=== PATIENT | male | born 1970 | race Caucasian/White ===

== ENCOUNTER → 2017-04-08 | Outpatient (CLI) | payer MEDICARE, OTHER ==
[~2017-04-08] MED LIST: ACETAMINOPHEN325 MG PEG; ADULT MUCU100 MG/5 M PEG; ALBUTEROL0.83 MG/ML IH; ALLERCLEAR10 MG PO; ANEXSIA 5/325 M1 TA1 PO; ASPIRIN81 M2 PEG; AURALGAN EAR DR14 ML AD; AURALGAN OTIC S10 M1 OT; BACID PEG; BACTROBAN22 GM TOP; BISA-LAX10 MG/SUP1 RC; CALADRYL CLEAR177 ML TOP; CALMOSEPTINE O3.5 GM TOP; CHEST CONG100 MG/51 PO; CHEWABLE ASPIRI81 MG PEG; CLARITIN10 M3 PO; CLARITIN10 MG PEG; CLOMIPRAMINE HC50 MG PEG; COLACE PO; COZAAR PO; COZAAR25 MG PO; CYCLOBENZAPRINE5 MG PEG; DULCOLAX10 MG/SUPP RC; FLEXERIL PO; FLEXERIL10 M1 PO; FLONASE16 GM; GABAPENTIN300 MG PEG; GABAPENTIN300 MG PO; GENTLE LAXATIVE10 MG RC; HYDROCODON-ACE1 EAC7 PEG; KCL PO; LANTUS100 U/ML SUBQ; LEVOTHYROXINE50 MC1 PO; LEVOTHYROXINE75 MCG PEG; LOPRESSOR PO; LOVASTATIN10 MG PEG; MELATONIN3 M4 PO; METOPROLOL TAR25 MG PO; MEVACOR PO; MEVACOR40 MG PO; NASAL SPRAY30 M1; NEPHROCAPS1 CAP PO; NEURONTIN600 MG PO; NEXIUM20 MG/PACK PEG; NORCO 5/325 TAB1 TAB PO; NOVOLOG100 U/M1 SUBQ; NOVOLOG100 U/ML; OMEGA 3 FISH OI1 CAP PEG; OMEGA 3 FISH OI1 CAP PO; PAIN RELIEF325 M1 PO; PATADAY2.5 ML OP; PATADAY2.5 ML OU; PRILOSEC PO; PRILOSEC20 MG PO; RENAL SOFTGEL1 MG PEG; RENAL SOFTGEL1 MG PO; ROBITUSSIN PO; ROBITUSSIN15 MG/5 ML PO; SEA MIST44 ML NS; SENOKOT60 M1 PO; SENOKOT60 ML PO; SERTRALINE HCL50 M1 PO; SYNTHROID PO; TAMIFLU75 M1 PO; TYLENOL325 M1 PO; VIBRAMYCIN100 M1 PEG; VITAMIN D400 UNI1 PEG; VITAMIN D50000 UNIT PEG; ZOLOFT50 MG PO
--- NOTE | ~2017-04-08 | XA166 ---
[facility] A Service of [facility] & [facility] RADIOLOGY TEXT RESULTS PATIENT: BRENT MONTOYA LOCATION: CIVR : 66 UNIT #: [id number] AGE: [address]: BERNICE VILLAVICENCIO SEX: M ORDER DR: [id number] [facility] [address] [place], [place] [address] [id number] O MR#: [id number] Acc #: [id number] NAME: BRENT MONTOYA : 1970 SEX: M STUDY DATE/TIME: 04/08/2017 14:40 UNIT: CIVR ROOM: STUDY DESCRIPTION: XA PICC Line Placement WO Port Attending Physician: Bernice Villavicencio Referring Physician: Bernice Villavicencio Primary Care Physician: Sukhi Vides Sr., M.D. MEDICAL IMAGING REPORT This report is preliminary unless electronic signature is present EXAM PICC line placement HISTORY Need for IV access in a 46-year-old male. PRE-PROCEDURE The procedure was explained to the patient and/or patient treasury representative including risks, benefits, potential complications and potential for alternative forms of treatment. Informed consent was obtained, and p1rior to initiating the procedure a formal timeout procedure was performed. PROCEDURE Using full standard sterile barrier technique, including caps, gowns, gloves, masks, as well as sterile skin preparation and standard sterile draping, the right arm was prepped and draped in the usual fashion, and real-time sterile ultrasound guidance was used to localize an arm vein and to confirm vessel patency. A hard copy ultrasound image was recorded. After local anesthesia with 1% Xylocaine, the vein was punctured using real-time sterile ultrasound guidance, and an 0.018 guidewire was advanced into the superior vena cava, using fluoroscopic guidance. A 4-Montserratian single-lumen PICC was then measured and deployed with the tip positioned in the superior vena cava. The position of the line was documented with a radiographic image. The line was secured in place with an adhesive dressing and an antibiotic patch was applied. Total fluoro time was 0.3 minutes. A single fluoroscopic spot image was obtained. IMPRESSION 1. Successful placement of a 4-[place]serr[place]ian single-lumen Power PICC via the right arm under ultrasound and fluoroscopic guidance. The tip of the PICC is in good position in the superior vena cava. 2. A single fluoroscopic spot image was obtained. [facility] A Service of [facility] RADIOLOGY TEXT RESULTS PATIENT: BRENT MONTOYA LOCATION: [facility] : 66 UNIT #: [id number] AGE: [address]: BERNICE VILLAVICENCIO SEX: M ORDER DR: Dictated by... Kurt Ladd M.D. THIS IS AN ELECTRONICALLY VERIFIED REPORT Kurt Ladd M.D. at 04/13/2017 11:21 AM CHRISTA/siomara TD: 04/09/2017 09:37 JOB #: [id number] MEDICAL IMAGING REPORT Page 1 of 1 COPY
== END | disposition home or self-care (01) ==
LOC: CIVR 13:44
DX: H66.91 Otitis media, unspecified, right ear (principal); B95.62 Methicillin resistant Staphylococcus aureus infection as the cause of diseases classified elsewhere; B96.20 Unspecified Escherichia coli [E. coli] as the cause of diseases classified elsewhere; N28.9 Disorder of kidney and ureter, unspecified; Z45.2 Encounter for adjustment and management of vascular access device
CPT/HCPCS: 76937; 77001; C1751; J1642